=== PATIENT | female | born 1985 | race African-American/Black ===

== ENCOUNTER 2017-06-03 08:41 | Emergency (ER) | payer OTHER ==
[~2017-06-03] VITALS: Ht 162.6 cm; Wt 76.2 kg
[2017-06-03 10:15] LABS: microscopic required? YES; urine erythrocyte 3+ (NEGATIVE)
[2017-06-03 10:32] LABS: BASOPHIL % 0.6 % (0-2); RED CELL DISTRIBUTION WIDTH 13.1 % (11.5-14.5)
[2017-06-03 10:55] VITALS: BP 121/82
[2017-06-03 11:54] LABS: PLATELET COUNT 180 x10^3mcL (130-400)
== END 2017-06-03 11:33 | disposition home or self-care (01) ==
LOC: ED 08:41
PROVIDERS: Emergency Medicine
DX: N93.9 Abnormal uterine and vaginal bleeding, unspecified (principal); R03.0 Elevated blood-pressure reading, without diagnosis of hypertension; R10.31 Right lower quadrant pain; R10.32 Left lower quadrant pain; Z98.51 Tubal ligation status
CPT/HCPCS: 36415

== ENCOUNTER 2019-07-26 13:32 | Emergency (ER) | payer OTHER ==
[~2019-07-26] VITALS: Ht 162.6 cm; Wt 76.7 kg
[2019-07-26 14:02] VITALS: Ht 162.6 cm; Wt 76.7 kg
[2019-07-26 16:34] VITALS: BP 107/60
== END 2019-07-26 16:34 | disposition home or self-care (01) ==
LOC: ED 13:32
DX: M54.5 Low back pain (principal)
CPT/HCPCS: J1885